=== PATIENT | male | born 1960 ===

== ENCOUNTER 2018-10-24 18:30 | Inpatient (IN) | payer MEDICARE, MEDICAID ==
[~2018-10-24] VITALS: Ht 182.9 cm; Wt 120.7 kg
[~2018-10-24 18:30] MED LIST: AMIT-189 PO; ASPI-1265 PO; ESCI10TA45 PO; GLIP-126 PO; HYDR-4384 PO; LISI-600 PO; LORA10TA2 PO; METF-951 PO; TRAM50TA2 PO; ZOC40T PO; metroNIDAZOLE 500mg/NS 100ml premix IV ONE
--- NOTE | 2018-10-24 18:46 | NUR ---
photos taken and added to the chart for documentation
[2018-10-24] MEDS ORDERED: morphine 4 MG/ML inj SYRINge IV ONE (19:50)
[2018-10-24 20:31] LABS: BASOPHILS % (AUTO) 0.3 % (0-1); EOSINOPHILS % (AUTO) 0 % (0-6); HEMATOCRIT 33.3 % (42.0-52.0); HEMOGLOBIN 11.2 g/dl (14.0-17.9); LYMPHOCYTES # (AUTO) 0.4 X10'3 (1.1-4.8); LYMPHOCYTES % (AUTO) 3.3 % (21-51); MEAN CORPUSCULAR HEMOGLOBIN 29.9 PG (27.0-31.0); MEAN CORPUSCULAR HGB CONC 33.8 g/dL (33.0-36.5); MEAN CORPUSCULAR VOLUME 88.5 FL (78-98); MEAN PLATELET VOLUME 8.8 FL (7.4-10.4); MONOCYTES # (AUTO) 0.9 X10'3 (0-0.9); MONOCYTES % (AUTO) 7.1 % (2-12); NEUTROPHILS # (AUTO) 11.2 X10'3 (1.8-7.7); NEUTROPHILS % (AUTO) 89.3 % (42-75); PLATELET COUNT 148 X10'3 (140-440); RED BLOOD COUNT 3.76 X10'6 (4.70-6.10); RED CELL DISTRIBUTION WIDTH 13.1 % (11.5-14.5); WHITE BLOOD COUNT 12.5 X10'3 (4.5-11.0)
[2018-10-24] MEDS ORDERED: midazolam 2 mg/2 ml injection ONE (20:38)
[2018-10-24] MEDS ORDERED: propofol inj 20 ML IV ONE (20:39)
[2018-10-24] MEDS ORDERED: fentaNYL /PF 50mcg/ml 5ml ampule ONE (20:39)
[2018-10-24 20:40] LABS: ALANINE AMINOTRANSFERASE 15 U/L (12-78); ALBUMIN 2.2 G/DL (3.4-5.0); ALBUMIN/GLOBULIN RATIO 0.6 (1.1-1.5); ALKALINE PHOSPHATASE 66 IU/L (46-116); ANION GAP 11 (8-16); ASPARTATE AMINO TRANSFERASE 8 U/L (10-37); BILIRUBIN,TOTAL 0.5 MG/DL (0.1-1.0); BLOOD UREA NITROGEN 46 MG/DL (7-18); BUN/CREATININE RATIO 16.3 (5.4-32.0); CALCIUM 7.6 MG/DL (8.5-10.1); CHLORIDE 97 MMOL/L (99-107); CREATININE 2.83 MG/DL (0.60-1.10); GLUCOSE 354 MG/DL (70-104); POTASSIUM 4.6 MMOL/L (3.5-5.1); SODIUM 125 MMOL/L (135-145); TOTAL CARBON DIOXIDE 17.3 MMOL/L (24-32); TOTAL PROTEIN 6.2 G/DL (6.4-8.2); eGFR 23 ML/MIN
[2018-10-24] MEDS ORDERED: sevoflurane 250ml liquid IH ONE (20:56)
[2018-10-24] MEDS ORDERED: dextrose 50%-water 50ml dispensing syringe IV PRN ×2 (21:00→23:45)
[2018-10-24 21:33] LABS: TOTAL CELLS COUNTED 100
[2018-10-24 21:34] LABS: PLATELET ESTIMATE NORMAL
[2018-10-24] MEDS ORDERED: ceFAZolin 1000mg inj ONE ×3 (21:40→21:48)
[2018-10-24] MEDS ORDERED: rocuronium 10mg/ml inj IV ONE ×2 (21:40→21:48)
[2018-10-24] MEDS ORDERED: ondansetron/PF 4mg/2ml inj IV PRN ×2 (22:40→23:45)
[2018-10-24] MEDS ORDERED: ringers solution, lacted 1,000 ML IV SCH (22:40)
[2018-10-24] MEDS ORDERED: MIDAZolam 5mg/5ml vial ONE (22:45)
[2018-10-24 23:30] VITALS: BP 109/56
--- NOTE | 2018-10-24 23:30 | NUR ---
Received to room 2014, accompanied by MD Brito and surgical crew. Placed on ventilator, to commanding officer traffic division, arterial line and CVP line pressure monitored. Qureshi cath to gravity drainage. Dressings are dry and intact. See assessment record. All vasoactive drugs are infusing via central line.
[2018-10-24 23:41] LABS: ABG BASE EXCESS -9.1 mmol/L (-2.0-3.0); ABG HCO3 17.1 mmol/L (22.0-26.0); ABG OXYGEN SATURATION 96.2 % (95-98); ABG PCO2 (T) 38.7 mmHg (35.0-48.0); ABG PH (T) 7.264 (7.350-7.450); ABG PO2 (T) 90.9 mmHg (83-108); FCOHb 0.7 % (0.5-1.5); FMetHb 0.1 % (0.3-1.12); FO2Hb 95.4 % (94-100); MINUTE VOLUME 10 L/min; PATIENT TEMPERATURE 37.5; PEEP 5 cm H2O; RESPIRATORY RATE 16 b/min; RESPIRATORY RATE (OBSERVED) 16 b/min; TIDAL VOLUME 500 mL; TOTAL HEMOGLOBIN 11.5 G/dl (14.0-18.0)
[2018-10-24 23:45] VITALS: BP 110/52
[2018-10-24] MEDS ORDERED: acetaminophen 325mg tablet PO PRN ×2 (23:45)
[2018-10-24] MEDS ORDERED: acetaminophen 650mg rectal suppository RC PRN (23:45)
[2018-10-24] MEDS ORDERED: insulin regular, human inj. 100 UNITS in normal saline 100ml IV soln 100 ML IV SCH ×2 (23:45)
[2018-10-24] MEDS: K, MAG and/or Phos replacement - Verify level? MC SCH (23:45)
[2018-10-24] MEDS ORDERED: potassium Cl 20mEq/100mL bag 100 ML IV PRN (23:45)
[2018-10-24] MEDS: midazolam 100mg in NS 100ml 100 ML IV PRN (23:58)
[2018-10-24] MEDS: FENTANYL-0.9 % NACL/PF 100 ML IV PRN (23:59)
[2018-10-25] VITALS (25 sets, daily range): BP systolic 97–128; BP diastolic 50–68
[2018-10-25] MEDS ORDERED: CLINDAMYCIN PHOSPHATE/D5W 50 ML IV SCH
[2018-10-25] MEDS: NORepinephrine 8 MG in NS 250ml IV soln IV SCH ×2 (00:01→15:41)
[2018-10-25] MEDS: insulin regular, human inj. 100 UNITS in normal saline 100ml IV soln 100 ML IV SCH ×6 (00:03→09:27)
[2018-10-25 00:08] LABS: BASOPHILS % (AUTO) 0.1 % (0-1); EOSINOPHILS % (AUTO) 0.1 % (0-6); HEMATOCRIT 31.2 % (42.0-52.0); HEMOGLOBIN 10.4 g/dl (14.0-17.9); LYMPHOCYTES # (AUTO) 0.3 X10'3 (1.1-4.8); LYMPHOCYTES % (AUTO) 2.8 % (21-51); MEAN CORPUSCULAR HEMOGLOBIN 29.8 PG (27.0-31.0); MEAN CORPUSCULAR HGB CONC 33.4 g/dL (33.0-36.5); MEAN CORPUSCULAR VOLUME 89.3 FL (78-98); MEAN PLATELET VOLUME 8.3 FL (7.4-10.4); MONOCYTES # (AUTO) 1.1 X10'3 (0-0.9); MONOCYTES % (AUTO) 9.6 % (2-12); NEUTROPHILS # (AUTO) 9.6 X10'3 (1.8-7.7); NEUTROPHILS % (AUTO) 87.4 % (42-75); PLATELET COUNT 139 X10'3 (140-440); RED BLOOD COUNT 3.49 X10'6 (4.70-6.10); RED CELL DISTRIBUTION WIDTH 13.1 % (11.5-14.5)
[2018-10-25] MEDS: clindamycin-Cleocin 900mg/D5W 50 ML IV SCH ×4 (00:11→23:55)
[2018-10-25 00:12] LABS: ALANINE AMINOTRANSFERASE 15 U/L (12-78); ALBUMIN 2.2 G/DL (3.4-5.0); ALBUMIN/GLOBULIN RATIO 0.6 (1.1-1.5); ALKALINE PHOSPHATASE 66 IU/L (46-116); ANION GAP 8 (8-16); ASPARTATE AMINO TRANSFERASE 7 U/L (10-37); BILIRUBIN,TOTAL 0.3 MG/DL (0.1-1.0); BLOOD UREA NITROGEN 46 MG/DL (7-18); BUN/CREATININE RATIO 19.6 (5.4-32.0); CALCIUM 8.4 MG/DL (8.5-10.1); CHLORIDE 101 MMOL/L (99-107); CREATININE 2.35 MG/DL (0.60-1.10); GLUCOSE 266 MG/DL (70-104); MAGNESIUM 1.5 MG/DL (1.5-2.4); PHOSPHORUS 3.5 MG/DL (2.3-4.5); POTASSIUM 4.6 MMOL/L (3.5-5.1); SODIUM 129 MMOL/L (135-145); TOTAL CARBON DIOXIDE 19.7 MMOL/L (24-32); TOTAL PROTEIN 5.7 G/DL (6.4-8.2); eGFR 29 ML/MIN
[2018-10-25 00:29] LABS: HEMOGLOBIN A1C 11.9 % (4.5-6.2)
[2018-10-25] MEDS: levoFLOXACIN-Levaquin 750MG/D5 150 ML IV SCH (00:54)
[2018-10-25] MEDS: normal saline 1000ml 1,000 ML IV SCH ×3 (01:09→20:30)
[2018-10-25] MEDS: VANCOMYCIN 1,500MG inj. 1,500 MG in normal saline 250ml IV soln 280 ML IV SCH (02:27)
--- NOTE | 2018-10-25 03:41 | NUR ---
Titrating Levophed to keep MAP greater than 65. Titrating sedation and pain medication to patient comfort. Will continue to monitor.
[2018-10-25 03:55] LABS: ABG BASE EXCESS -7.8 mmol/L (-2.0-3.0); ABG HCO3 17.5 mmol/L (22.0-26.0); ABG OXYGEN SATURATION 96.7 % (95-98); ABG PCO2 (T) 35.5 mmHg (35.0-48.0); ABG PH (T) 7.311 (7.350-7.450); ABG PO2 (T) 93.1 mmHg (83-108); FCOHb 0.3 % (0.5-1.5); FMetHb 0.1 % (0.3-1.12); FO2Hb 96.3 % (94-100); MINUTE VOLUME 10 L/min; PATIENT TEMPERATURE 37.4; PEEP 5 cm H2O; RESPIRATORY RATE 16 b/min; RESPIRATORY RATE (OBSERVED) 16 b/min; TIDAL VOLUME 600 mL; TOTAL HEMOGLOBIN 11.6 G/dl (14.0-18.0)
--- NOTE | 2018-10-25 04:24 | NUR ---
Discharge planning consult ordered per protocol related to high risk readmission criteria score Addendum: 10/25/18 at 0426 by Tierra Newman RN Amended: Links added.
[2018-10-25 04:29] LABS: BASOPHILS % (AUTO) 0.3 % (0-1); EOSINOPHILS % (AUTO) 0 % (0-6); HEMATOCRIT 31.7 % (42.0-52.0); HEMOGLOBIN 10.8 g/dl (14.0-17.9); LYMPHOCYTES # (AUTO) 0.4 X10'3 (1.1-4.8); LYMPHOCYTES % (AUTO) 3.6 % (21-51); MEAN CORPUSCULAR HGB CONC 34.1 g/dL (33.0-36.5); MEAN CORPUSCULAR VOLUME 88.1 FL (78-98); MEAN PLATELET VOLUME 8.4 FL (7.4-10.4); MONOCYTES % (AUTO) 8.4 % (2-12); NEUTROPHILS # (AUTO) 10.9 X10'3 (1.8-7.7); NEUTROPHILS % (AUTO) 87.7 % (42-75); PLATELET COUNT 153 X10'3 (140-440); RED BLOOD COUNT 3.59 X10'6 (4.70-6.10); RED CELL DISTRIBUTION WIDTH 13.1 % (11.5-14.5); WHITE BLOOD COUNT 12.5 X10'3 (4.5-11.0)
[2018-10-25 04:40] LABS: ALANINE AMINOTRANSFERASE 14 U/L (12-78); ALBUMIN 2.1 G/DL (3.4-5.0); ALBUMIN/GLOBULIN RATIO 0.5 (1.1-1.5); ALKALINE PHOSPHATASE 66 IU/L (46-116); ANION GAP 10 (8-16); ASPARTATE AMINO TRANSFERASE 8 U/L (10-37); BILIRUBIN,TOTAL 0.3 MG/DL (0.1-1.0); BLOOD UREA NITROGEN 41 MG/DL (7-18); BUN/CREATININE RATIO 20.4 (5.4-32.0); CHLORIDE 101 MMOL/L (99-107); CREATININE 2.01 MG/DL (0.60-1.10); GLUCOSE 239 MG/DL (70-104); MAGNESIUM 1.5 MG/DL (1.5-2.4); PHOSPHORUS 2.7 MG/DL (2.3-4.5); POTASSIUM 4.2 MMOL/L (3.5-5.1); SODIUM 130 MMOL/L (135-145); TOTAL CARBON DIOXIDE 18.9 MMOL/L (24-32); eGFR 34 ML/MIN
--- NOTE | 2018-10-25 04:56 | NUR ---
AM Labs and ABG reviewed, Nagi Torrez updated on patient's current status. No new orders at this time.
--- NOTE | 2018-10-25 06:22 | NUR ---
Problems reprioritized. Patient report given, questions answered & plan of care reviewed with Nadine DALTON.
--- NOTE | 2018-10-25 06:38 | NUR ---
Patient in room CICU 2013. I have received report from SHA Mayorga and had the opportunity to ask questions and assume patient care.
[2018-10-25] MEDS: K, MAG and/or Phos replacement - Verify level? MC SCH (07:28)
[2018-10-25] MEDS: ESOMEPRAZOLE 40 MG VIAL IV SCH (07:39)
[2018-10-25] MEDS ORDERED: pantoprazole 40 MG vial IV SCH (08:00)
[2018-10-25] MEDS: insulin Lispro (HumaLOG) vial - multi-dose SQ SCH ×3 (09:00→18:00)
--- NOTE | 2018-10-25 11:53 | NUR ---
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 Pt now s/p I&D and will likely return to the OR tomorrow for further surgery possibly to include a diverting colostomy per H&P. Pt currently intubated. denies starting TF at this time pending surgery tomorrow. Pt with increased protein needs r/t intubation and wounds. TF recommendations below for if prolonged intubation and pt to receive tube feeding. Pt may benefit from Relistor post-op r/t A1c 11.9 with possibility of gastroparesis. Pt will need DM ed prior to d/c. Will continue to follow. Recommendations: 1) If to receive tube feed, recommend Vital High Protein with goal rate of 75 mL/hr 2) If above, prealbumin q M/; daily weights 3) If above, careful hydration with low serum Na 4) Diet advancement to CHO controlled/low-residue/HH s/p extubation 5) DM and protein ed prior to d/c 6) Colostomy education prior to d/c IF colostomy Addendum: 10/25/18 at [address] Amended: Links added.
[2018-10-25] MEDS: metroNIDAZOLE-Flagyl 500mg/NS 100ml IVPB IV SCH ×3 (12:23→23:55)
[2018-10-25] MEDS: hydrocortisone sod succ/PF 100mg/2ml inj. IV SCH ×2 (14:23→20:02)
[2018-10-25] MEDS: FENTANYL-0.9 % NACL/PF 100 ML IV PRN (15:39)
--- NOTE | 2018-10-25 16:11 | NUR ---
RECOMMEND: 1. Daily bathing with no rinse skin cleanser. 2. Cream/Lotion to be applied to skin after bathing. 3. Alicia care Q shift and prn soiling followed by with Barrier Cream. 4. Turn patient Q 1-2 hrs and reposition with pillows. 5. Float heels to offload pressure. Addendum: 10/25/18 at 1613 by Bel Munoz RN Amended: Links added.
--- NOTE | 2018-10-25 18:25 | NUR ---
Problems reprioritized. Patient report given, questions answered & plan of care reviewed with SHA Covarrubias.
[2018-10-26] VITALS (24 sets, daily range): BP systolic 98–139; BP diastolic 55–73
[2018-10-26] MEDS: VANCOMYCIN 1,500MG inj. 1,500 MG in normal saline 250ml IV soln 280 ML IV SCH (01:03)
[2018-10-26] MEDS: hydrocortisone sod succ/PF 100mg/2ml inj. IV SCH ×4 (02:07→20:50)
[2018-10-26] MEDS: mineral oil/petrolatum ophthal oint EACHEYE SCH ×4 (02:07→20:51)
[2018-10-26 04:14] LABS: BASOPHILS % (AUTO) 0.1 % (0-1); EOSINOPHILS % (AUTO) 0.1 % (0-6); HEMATOCRIT 29.8 % (42.0-52.0); HEMOGLOBIN 10.3 g/dl (14.0-17.9); LYMPHOCYTES # (AUTO) 0.4 X10'3 (1.1-4.8); LYMPHOCYTES % (AUTO) 4.4 % (21-51); MEAN CORPUSCULAR HEMOGLOBIN 30.3 PG (27.0-31.0); MEAN CORPUSCULAR HGB CONC 34.5 g/dL (33.0-36.5); MEAN CORPUSCULAR VOLUME 87.9 FL (78-98); MONOCYTES # (AUTO) 0.8 X10'3 (0-0.9); MONOCYTES % (AUTO) 7.6 % (2-12); NEUTROPHILS # (AUTO) 8.9 X10'3 (1.8-7.7); NEUTROPHILS % (AUTO) 87.8 % (42-75); PLATELET COUNT 177 X10'3 (140-440); RED BLOOD COUNT 3.39 X10'6 (4.70-6.10); RED CELL DISTRIBUTION WIDTH 13.4 % (11.5-14.5); WHITE BLOOD COUNT 10.2 X10'3 (4.5-11.0)
[2018-10-26 04:18] LABS: ALANINE AMINOTRANSFERASE 14 U/L (12-78); ALBUMIN 1.9 G/DL (3.4-5.0); ALBUMIN/GLOBULIN RATIO 0.5 (1.1-1.5); ALKALINE PHOSPHATASE 64 IU/L (46-116); ANION GAP 9 (8-16); ASPARTATE AMINO TRANSFERASE 9 U/L (10-37); BILIRUBIN,TOTAL 0.2 MG/DL (0.1-1.0); BLOOD UREA NITROGEN 32 MG/DL (7-18); BUN/CREATININE RATIO 25.2 (5.4-32.0); CALCIUM 8.5 MG/DL (8.5-10.1); CHLORIDE 109 MMOL/L (99-107); CREATININE 1.27 MG/DL (0.60-1.10); GLUCOSE 135 MG/DL (70-104); PHOSPHORUS 2.5 MG/DL (2.3-4.5); SODIUM 137 MMOL/L (135-145); TOTAL CARBON DIOXIDE 19.3 MMOL/L (24-32); eGFR 58 ML/MIN
[2018-10-26 04:36] LABS: ABG BASE EXCESS -6.5 mmol/L (-2.0-3.0); ABG HCO3 17.8 mmol/L (22.0-26.0); ABG OXYGEN SATURATION 97.5 % (95-98); ABG PCO2 (T) 30.8 mmHg (35.0-48.0); ABG PH (T) 7.377 (7.350-7.450); ABG PO2 (T) 99.6 mmHg (83-108); FCOHb 0.3 % (0.5-1.5); FMetHb 0.1 % (0.3-1.12); FO2Hb 97.1 % (94-100); MINUTE VOLUME 10 L/min; PATIENT TEMPERATURE 36.7; PEEP 5 cm H2O; RESPIRATORY RATE 16 b/min; RESPIRATORY RATE (OBSERVED) 16 b/min; TIDAL VOLUME 600 mL
[2018-10-26] MEDS: normal saline 1000ml 1,000 ML IV SCH ×2 (04:57→16:50)
--- NOTE | 2018-10-26 06:35 | NUR ---
Problems reprioritized. Patient report given, questions answered & plan of care reviewed with YOLIE DALTON.
--- NOTE | 2018-10-26 06:58 | NUR ---
Patient in room CICU 2013. I have received report from SHA Covarrubias and had the opportunity to ask questions and assume patient care.
[2018-10-26] MEDS: K, MAG and/or Phos replacement - Verify level? MC SCH (08:00)
[2018-10-26] MEDS: levoFLOXACIN-Levaquin 750MG/D5 150 ML IV SCH (08:35)
[2018-10-26] MEDS: metroNIDAZOLE-Flagyl 500mg/NS 100ml IVPB IV SCH ×2 (08:35→16:05)
[2018-10-26] MEDS: clindamycin-Cleocin 900mg/D5W 50 ML IV SCH ×2 (08:35→16:05)
[2018-10-26] MEDS: ESOMEPRAZOLE 40 MG VIAL IV SCH (08:36)
[2018-10-26] MEDS: FENTANYL-0.9 % NACL/PF 100 ML IV PRN (08:38)
[2018-10-26] MEDS: midazolam 100mg in NS 100ml 100 ML IV PRN (08:39)
[2018-10-26] MEDS: insulin Lispro (HumaLOG) vial - multi-dose SQ SCH ×3 (09:00→18:00)
[2018-10-26] MEDS: insulin regular, human inj. 100 UNITS in normal saline 100ml IV soln 100 ML IV SCH ×4 (09:00→12:37)
--- NOTE | 2018-10-26 10:02 | NUR ---
Wound consult: Pt remains NPO and intubated at this time. Will need protein education prior to discharge s/p extubation once pt alert and oriented. Addendum: 10/26/18 at [address] Amended: Links added.
--- NOTE | 2018-10-26 18:26 | NUR ---
Problems reprioritized. Patient report given, questions answered & plan of care reviewed with Michelle. DALTON.
[2018-10-26] MEDS: NORepinephrine 8 MG in NS 250ml IV soln IV SCH (20:50)
--- NOTE | 2018-10-26 23:39 | NUR ---
Qureshi catheter not draining even after flush. notified, orders received to exchange with 18F catheter. Exchange completed without incident, catheter output: 100mL light salas urine. Will continue to monitor closely.
[2018-10-27] VITALS (29 sets, daily range): BP systolic 97–159; BP diastolic 54–88
[2018-10-27] MEDS: clindamycin-Cleocin 900mg/D5W 50 ML IV SCH ×4 (01:12→23:45)
[2018-10-27] MEDS: midazolam 100mg in NS 100ml 100 ML IV PRN (01:16)
[2018-10-27] MEDS: metroNIDAZOLE-Flagyl 500mg/NS 100ml IVPB IV SCH ×3 (01:48→16:09)
[2018-10-27] MEDS: hydrocortisone sod succ/PF 100mg/2ml inj. IV SCH ×4 (02:15→19:45)
[2018-10-27] MEDS: normal saline 1000ml 1,000 ML IV SCH ×3 (02:16→22:30)
[2018-10-27] MEDS: mineral oil/petrolatum ophthal oint EACHEYE SCH ×4 (02:16→19:45)
[2018-10-27] MEDS: VANCOMYCIN 1,500MG inj. 1,500 MG in normal saline 250ml IV soln 280 ML IV SCH (03:12)
[2018-10-27 04:05] LABS: ABG BASE EXCESS -5.9 mmol/L (-2.0-3.0); ABG OXYGEN SATURATION 96.1 % (95-98); ABG PCO2 (T) 30.4 mmHg (35.0-48.0); ABG PH (T) 7.391 (7.350-7.450); ABG PO2 (T) 82.5 mmHg (83-108); FCOHb 0.3 % (0.5-1.5); FMetHb 0.3 % (0.3-1.12); FO2Hb 95.5 % (94-100); MINUTE VOLUME 11 L/min; PATIENT TEMPERATURE 36.9; PEEP 5 cm H2O; RESPIRATORY RATE 16 b/min; RESPIRATORY RATE (OBSERVED) 16 b/min; TIDAL VOLUME 600 mL; TOTAL HEMOGLOBIN 10.9 G/dl (14.0-18.0)
[2018-10-27 04:28] LABS: BASOPHILS % (AUTO) 0.3 % (0-1); EOSINOPHILS % (AUTO) 0 % (0-6); HEMOGLOBIN 9.9 g/dl (14.0-17.9); LYMPHOCYTES # (AUTO) 0.7 X10'3 (1.1-4.8); LYMPHOCYTES % (AUTO) 8.1 % (21-51); MEAN CORPUSCULAR HEMOGLOBIN 30.3 PG (27.0-31.0); MEAN CORPUSCULAR HGB CONC 34.3 g/dL (33.0-36.5); MEAN CORPUSCULAR VOLUME 88.2 FL (78-98); MEAN PLATELET VOLUME 8.4 FL (7.4-10.4); MONOCYTES # (AUTO) 0.6 X10'3 (0-0.9); MONOCYTES % (AUTO) 7.6 % (2-12); NEUTROPHILS # (AUTO) 6.9 X10'3 (1.8-7.7); PLATELET COUNT 183 X10'3 (140-440); RED BLOOD COUNT 3.29 X10'6 (4.70-6.10); RED CELL DISTRIBUTION WIDTH 13.6 % (11.5-14.5); WHITE BLOOD COUNT 8.2 X10'3 (4.5-11.0)
[2018-10-27 05:05] LABS: ALANINE AMINOTRANSFERASE 11 U/L (12-78); ALBUMIN 1.7 G/DL (3.4-5.0); ALBUMIN/GLOBULIN RATIO 0.5 (1.1-1.5); ALKALINE PHOSPHATASE 58 IU/L (46-116); ANION GAP 10 (8-16); ASPARTATE AMINO TRANSFERASE 13 U/L (10-37); BILIRUBIN,TOTAL 0.2 MG/DL (0.1-1.0); BLOOD UREA NITROGEN 32 MG/DL (7-18); BUN/CREATININE RATIO 27.1 (5.4-32.0); CALCIUM 8.5 MG/DL (8.5-10.1); CHLORIDE 111 MMOL/L (99-107); CREATININE 1.18 MG/DL (0.60-1.10); GLUCOSE 180 MG/DL (70-104); POTASSIUM 3.7 MMOL/L (3.5-5.1); SODIUM 141 MMOL/L (135-145); TOTAL CARBON DIOXIDE 19.7 MMOL/L (24-32); TOTAL PROTEIN 5.4 G/DL (6.4-8.2); eGFR 63 ML/MIN
--- NOTE | 2018-10-27 06:23 | NUR ---
Problems reprioritized. Patient report given, questions answered & plan of care reviewed with Marci DALTON.
--- NOTE | 2018-10-27 06:30 | NUR ---
Patient in room CICU 2013. I have received report from shift nurse manager nurse and had the opportunity to ask questions and assume patient care.
[2018-10-27] MEDS: K, MAG and/or Phos replacement - Verify level? MC SCH (08:00)
[2018-10-27] MEDS: ESOMEPRAZOLE 40 MG VIAL IV SCH (08:00)
--- NOTE | 2018-10-27 08:00 | NUR ---
to OR via bed, anesthesia in attendance, monitored, and 2 RN transporting. consent obtained via telephone from son.
[2018-10-27] MEDS: insulin Lispro (HumaLOG) vial - multi-dose SQ SCH ×3 (09:00→18:00)
[2018-10-27] MEDS ORDERED: rocuronium 10mg/ml inj IV ONE ×2 (09:02)
--- NOTE | 2018-10-27 10:00 | NUR ---
returned from OR via bed, anesthesia in attendance, monitored, report received and stable
[2018-10-27] MEDS: FENTANYL-0.9 % NACL/PF 100 ML IV PRN (10:42)
--- NOTE | 2018-10-27 18:39 | NUR ---
Patient in room CICU 2013. I have received report from SHA Covarrubias and had the opportunity to ask questions and assume patient care. Patient is awake and alert, intubated and on sedation with Versed and pain control with Fentanyl. Patient is also on a insulin drip. Patient is attempting to speak with the tube in place, unable to understand. Patient given picture chart to attempt to communicate, without success. Explained to patient that the tube needed to stay in for the night, patient nodded his head that he understood.
[2018-10-27] MEDS: insulin regular, human inj. 100 UNITS in normal saline 100ml IV soln 100 ML IV SCH ×2 (21:00)
[2018-10-28] VITALS (23 sets, daily range): BP systolic 88–149; BP diastolic 51–94
[2018-10-28] MEDS ORDERED: VANCOMYCIN LEVEL IV ONE (00:30)
[2018-10-28] MEDS: metroNIDAZOLE-Flagyl 500mg/NS 100ml IVPB IV SCH ×3 (00:49→15:48)
[2018-10-28] MEDS: midazolam 100mg in NS 100ml 100 ML IV PRN (01:09)
[2018-10-28] MEDS: FENTANYL-0.9 % NACL/PF 100 ML IV PRN ×2 (01:12→22:21)
[2018-10-28] MEDS: hydrocortisone sod succ/PF 100mg/2ml inj. IV SCH ×4 (02:17→21:00)
[2018-10-28] MEDS: VANCOMYCIN 1,500MG inj. 1,500 MG in normal saline 250ml IV soln 280 ML IV SCH (02:17)
[2018-10-28] MEDS: mineral oil/petrolatum ophthal oint EACHEYE SCH ×4 (02:17→21:00)
[2018-10-28 03:55] LABS: BASOPHILS % (AUTO) 0.6 % (0-1); EOSINOPHILS % (AUTO) 0 % (0-6); HEMATOCRIT 31.4 % (42.0-52.0); HEMOGLOBIN 10.6 g/dl (14.0-17.9); MEAN CORPUSCULAR HEMOGLOBIN 29.8 PG (27.0-31.0); MEAN CORPUSCULAR HGB CONC 33.8 g/dL (33.0-36.5); MEAN PLATELET VOLUME 8.1 FL (7.4-10.4); MONOCYTES # (AUTO) 0.9 X10'3 (0-0.9); MONOCYTES % (AUTO) 10.3 % (2-12); NEUTROPHILS # (AUTO) 6.8 X10'3 (1.8-7.7); NEUTROPHILS % (AUTO) 78.1 % (42-75); PLATELET COUNT 211 X10'3 (140-440); RED BLOOD COUNT 3.57 X10'6 (4.70-6.10); RED CELL DISTRIBUTION WIDTH 13.7 % (11.5-14.5); WHITE BLOOD COUNT 8.7 X10'3 (4.5-11.0)
[2018-10-28 04:04] LABS: ALANINE AMINOTRANSFERASE 13 U/L (12-78); ALBUMIN 1.8 G/DL (3.4-5.0); ALBUMIN/GLOBULIN RATIO 0.5 (1.1-1.5); ALKALINE PHOSPHATASE 55 IU/L (46-116); ANION GAP 9 (8-16); ASPARTATE AMINO TRANSFERASE 11 U/L (10-37); BILIRUBIN,TOTAL 0.3 MG/DL (0.1-1.0); BLOOD UREA NITROGEN 30 MG/DL (7-18); BUN/CREATININE RATIO 25.2 (5.4-32.0); CALCIUM 8.3 MG/DL (8.5-10.1); CHLORIDE 115 MMOL/L (99-107); CREATININE 1.19 MG/DL (0.60-1.10); GLUCOSE 151 MG/DL (70-104); MAGNESIUM 1.8 MG/DL (1.5-2.4); POTASSIUM 3.3 MMOL/L (3.5-5.1); SODIUM 145 MMOL/L (135-145); TOTAL CARBON DIOXIDE 21.1 MMOL/L (24-32); TOTAL PROTEIN 5.3 G/DL (6.4-8.2); eGFR 63 ML/MIN
[2018-10-28 05:01] LABS: ABG HCO3 19.6 mmol/L (22.0-26.0); ABG OXYGEN SATURATION 95.1 % (95-98); ABG PCO2 (T) 30.9 mmHg (35.0-48.0); ABG PH (T) 7.419 (7.350-7.450); ABG PO2 (T) 79.7 mmHg (83-108); FCOHb 0.2 % (0.5-1.5); FMetHb 0.2 % (0.3-1.12); FO2Hb 94.7 % (94-100); MINUTE VOLUME 10 L/min; PATIENT TEMPERATURE 36.7; PEEP 5 cm H2O; RESPIRATORY RATE 16 b/min; RESPIRATORY RATE (OBSERVED) 16 b/min; TIDAL VOLUME 600 mL; TOTAL HEMOGLOBIN 11.5 G/dl (14.0-18.0)
[2018-10-28] MEDS: insulin regular, human inj. 100 UNITS in normal saline 100ml IV soln 100 ML IV SCH ×4 (05:18→23:55)
[2018-10-28] MEDS: normal saline 1000ml 1,000 ML IV SCH ×2 (05:18→18:30)
--- NOTE | 2018-10-28 06:20 | NUR ---
Problems reprioritized. Patient report given, questions answered & plan of care reviewed with SHA Burnett.
[2018-10-28] MEDS: K, MAG and/or Phos replacement - Verify level? MC SCH (08:00)
[2018-10-28] MEDS: clindamycin-Cleocin 900mg/D5W 50 ML IV SCH ×2 (08:33→15:47)
[2018-10-28] MEDS: levoFLOXACIN-Levaquin 750MG/D5 150 ML IV SCH (08:33)
[2018-10-28] MEDS: ESOMEPRAZOLE 40 MG VIAL IV SCH (08:34)
[2018-10-28] MEDS: potassium Cl 20mEq/100mL bag 100 ML IV PRN ×2 (08:38→16:51)
[2018-10-28] MEDS: insulin Lispro (HumaLOG) vial - multi-dose SQ SCH ×2 (09:00→18:00)
[2018-10-28] MEDS ORDERED: VANCOMYCIN 1,500MG inj. 1,500 MG in normal saline 250ml IV soln 280 ML IV SCH (09:00)
[2018-10-28] MEDS: CefTRIAXone 2gm/D5W 50ml 50 ML IV SCH (14:23)
--- NOTE | 2018-10-28 18:30 | NUR ---
Patient in room CICU 2013. I have received report from SHA Burnett and had the opportunity to ask questions and assume patient care.
[2018-10-28] MEDS: NORepinephrine 8 MG in NS 250ml IV soln IV SCH (20:50)
[2018-10-29] VITALS (22 sets, daily range): BP systolic 96–169; BP diastolic 57–85
[2018-10-29] MEDS: midazolam 100mg in NS 100ml 100 ML IV PRN
[2018-10-29] MEDS: clindamycin-Cleocin 900mg/D5W 50 ML IV SCH ×4 (00:36→23:55)
[2018-10-29] MEDS: metroNIDAZOLE-Flagyl 500mg/NS 100ml IVPB IV SCH ×4 (00:43→23:54)
[2018-10-29] MEDS: hydrocortisone sod succ/PF 100mg/2ml inj. IV SCH ×3 (02:48→20:14)
[2018-10-29] MEDS: mineral oil/petrolatum ophthal oint EACHEYE SCH ×4 (02:48→20:14)
[2018-10-29 03:40] LABS: ABG BASE EXCESS -2.5 mmol/L (-2.0-3.0); ABG HCO3 21.1 mmol/L (22.0-26.0); ABG OXYGEN SATURATION 97.5 % (95-98); ABG PCO2 (T) 32.1 mmHg (35.0-48.0); ABG PH (T) 7.434 (7.350-7.450); ABG PO2 (T) 103.1 mmHg (83-108); ALLEN'S TEST Positive; FCOHb 0.3 % (0.5-1.5); FMetHb 0.1 % (0.3-1.12); FO2Hb 97.1 % (94-100); MINUTE VOLUME 10 L/min; PATIENT TEMPERATURE 36.6; PEEP 5 cm H2O; RESPIRATORY RATE 16 b/min; RESPIRATORY RATE (OBSERVED) 16 b/min; TOTAL HEMOGLOBIN 11.7 G/dl (14.0-18.0)
[2018-10-29] MEDS: normal saline 1000ml 1,000 ML IV SCH ×3 (04:30→23:54)
[2018-10-29] MEDS: FENTANYL-0.9 % NACL/PF 100 ML IV PRN ×2 (04:31→12:12)
[2018-10-29 06:01] LABS: BASOPHILS % (AUTO) 0.3 % (0-1); EOSINOPHILS % (AUTO) 0.1 % (0-6); HEMATOCRIT 33.7 % (42.0-52.0); HEMOGLOBIN 11.3 g/dl (14.0-17.9); LYMPHOCYTES # (AUTO) 0.8 X10'3 (1.1-4.8); LYMPHOCYTES % (AUTO) 9.9 % (21-51); MEAN CORPUSCULAR HEMOGLOBIN 29.5 PG (27.0-31.0); MEAN CORPUSCULAR HGB CONC 33.4 g/dL (33.0-36.5); MEAN CORPUSCULAR VOLUME 88.3 FL (78-98); MEAN PLATELET VOLUME 7.9 FL (7.4-10.4); MONOCYTES # (AUTO) 0.7 X10'3 (0-0.9); MONOCYTES % (AUTO) 8.4 % (2-12); NEUTROPHILS # (AUTO) 6.6 X10'3 (1.8-7.7); NEUTROPHILS % (AUTO) 81.3 % (42-75); PLATELET COUNT 254 X10'3 (140-440); RED BLOOD COUNT 3.82 X10'6 (4.70-6.10); RED CELL DISTRIBUTION WIDTH 13.9 % (11.5-14.5); WHITE BLOOD COUNT 8.1 X10'3 (4.5-11.0)
[2018-10-29 06:22] LABS: ALANINE AMINOTRANSFERASE 13 U/L (12-78); ALBUMIN 1.9 G/DL (3.4-5.0); ALBUMIN/GLOBULIN RATIO 0.5 (1.1-1.5); ALKALINE PHOSPHATASE 54 IU/L (46-116); ANION GAP 8 (8-16); ASPARTATE AMINO TRANSFERASE 9 U/L (10-37); BILIRUBIN,TOTAL 0.2 MG/DL (0.1-1.0); BLOOD UREA NITROGEN 29 MG/DL (7-18); CALCIUM 8.4 MG/DL (8.5-10.1); CHLORIDE 117 MMOL/L (99-107); CREATININE 1.21 MG/DL (0.60-1.10); GLUCOSE 111 MG/DL (70-104); MAGNESIUM 1.8 MG/DL (1.5-2.4); POTASSIUM 3.6 MMOL/L (3.5-5.1); SODIUM 148 MMOL/L (135-145); TOTAL CARBON DIOXIDE 22.6 MMOL/L (24-32); TOTAL PROTEIN 5.7 G/DL (6.4-8.2); eGFR 61 ML/MIN
--- NOTE | 2018-10-29 06:30 | NUR ---
Problems reprioritized. Patient report given, questions answered & plan of care reviewed with SHA Mccoy.
--- NOTE | 2018-10-29 06:41 | NUR ---
Patient in room CICU 2013. I have received report from SHA Arguello and had the opportunity to ask questions and assume patient care.
[2018-10-29] MEDS: ESOMEPRAZOLE 40 MG VIAL IV SCH (07:16)
[2018-10-29] MEDS: CefTRIAXone 2gm/D5W 50ml 50 ML IV SCH (07:16)
[2018-10-29] MEDS: K, MAG and/or Phos replacement - Verify level? MC SCH (08:00)
[2018-10-29] MEDS: insulin Lispro (HumaLOG) vial - multi-dose SQ SCH ×3 (09:00→18:00)
--- NOTE | 2018-10-29 13:46 | NUR ---
Pending surgery today for diverting colostomy, hopeful extubation and diet advancement afterwards. Wound consult: Pt remains NPO and intubated at this time. Will need protein education prior to discharge s/p extubation once pt alert and oriented. 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 Pt now s/p I&D and will likely return to the OR tomorrow for further surgery possibly to include a diverting colostomy per H&P. Pt currently intubated. denies starting TF at this time pending surgery tomorrow. Pt with increased protein needs r/t intubation and wounds. TF recommendations below for if prolonged intubation and pt to receive tube feeding. Pt may benefit from Relistor post-op r/t A1c 11.9 with possibility of gastroparesis. Pt will need DM ed prior to d/c. Will continue to follow. Recommendations: 1) If to receive tube feed, recommend Vital High Protein with goal rate of 75 mL/hr 2) If above, prealbumin q /; daily weights 3) If above, careful hydration with low serum Na 4) Diet advancement to CHO controlled/low-residue/HH s/p extubation 5) DM and protein ed prior to d/c 6) Colostomy education prior to d/c Addendum: 10/29/18 at [address] Amended: Links added.
[2018-10-29] MEDS ORDERED: ringers solution, lacted 1,000 ML IV SCH (14:17)
[2018-10-29] MEDS ORDERED: ondansetron/PF 4mg/2ml inj IV PRN (14:20)
[2018-10-29] MEDS ORDERED: morphine 4 MG/ML inj SYRINge IV PRN ×2 (14:20)
[2018-10-29] MEDS ORDERED: fentaNYL/PF 50MCG/1 ML 2ML syringe IV PRN ×2 (14:20)
[2018-10-29] MEDS ORDERED: labetalol 20mg/4ml (5mg/ml) syringe IV PRN (14:20)
[2018-10-29] MEDS ORDERED: hydrALAZINE 20mg/ml inj. IV PRN (14:20)
[2018-10-29] MEDS ORDERED: BUPIVAcaine/PF 2.5 mg/ml (0.25%) 30ml vial ONE (14:45)
[2018-10-29] MEDS ORDERED: LIDOcaine 1% 30ml preserv. free vial ONE (14:45)
[2018-10-29] MEDS ORDERED: epiNEPHrine 1 mg/ml inj ONE (14:45)
--- NOTE | 2018-10-29 15:00 | NUR ---
pt taken to OR
[2018-10-29] MEDS ORDERED: sevoflurane 250ml liquid IH ONE (15:03)
[2018-10-29] MEDS ORDERED: ePHEDrine 50MG/ML INJ. ONE (15:23)
[2018-10-29] MEDS ORDERED: labetalol 20mg/4ml (5mg/ml) syringe IV ONE (15:37)
[2018-10-29] MEDS ORDERED: ondansetron/PF 4mg/2ml inj ONE (16:22)
--- NOTE | 2018-10-29 16:43 | NUR ---
Pt returned from OR, lines, organized, zeroed and transduced. Pt placed back on ICU monitor. Responds to questions appropriately and follows all commands. Pt soiled upon arrival, cleaned and new linens placed underneath pt. Will continue to monitor
--- NOTE | 2018-10-29 18:21 | NUR ---
Problems reprioritized. Patient report given, questions answered & plan of care reviewed with SHA Covarrubias.
[2018-10-29] MEDS ORDERED: VANCOMYCIN LEVEL IV ONE (20:30)
[2018-10-30] VITALS (24 sets, daily range): BP systolic 123–169; BP diastolic 59–87
[2018-10-30] MEDS: mineral oil/petrolatum ophthal oint EACHEYE SCH ×3 (02:25→14:00)
[2018-10-30 03:37] LABS: ALANINE AMINOTRANSFERASE 14 U/L (12-78); ALBUMIN 1.8 G/DL (3.4-5.0); ALBUMIN/GLOBULIN RATIO 0.5 (1.1-1.5); ALKALINE PHOSPHATASE 51 IU/L (46-116); ANION GAP 10 (8-16); ASPARTATE AMINO TRANSFERASE 14 U/L (10-37); BILIRUBIN,TOTAL 0.2 MG/DL (0.1-1.0); BLOOD UREA NITROGEN 26 MG/DL (7-18); BUN/CREATININE RATIO 21.3 (5.4-32.0); CALCIUM 7.8 MG/DL (8.5-10.1); CHLORIDE 117 MMOL/L (99-107); CREATININE 1.22 MG/DL (0.60-1.10); GLUCOSE 182 MG/DL (70-104); MAGNESIUM 1.6 MG/DL (1.5-2.4); PHOSPHORUS 3.9 MG/DL (2.3-4.5); POTASSIUM 3.5 MMOL/L (3.5-5.1); SODIUM 147 MMOL/L (135-145); TOTAL CARBON DIOXIDE 20.5 MMOL/L (24-32); TOTAL PROTEIN 5.2 G/DL (6.4-8.2); eGFR 61 ML/MIN
[2018-10-30] MEDS: FENTANYL-0.9 % NACL/PF 100 ML IV PRN (03:41)
[2018-10-30 03:42] LABS: BASOPHILS % (AUTO) 0.2 % (0-1); EOSINOPHILS % (AUTO) 0.3 % (0-6); HEMATOCRIT 31.4 % (42.0-52.0); HEMOGLOBIN 10.6 g/dl (14.0-17.9); LYMPHOCYTES # (AUTO) 1.2 X10'3 (1.1-4.8); LYMPHOCYTES % (AUTO) 12.2 % (21-51); MEAN CORPUSCULAR HEMOGLOBIN 29.8 PG (27.0-31.0); MEAN CORPUSCULAR HGB CONC 33.8 g/dL (33.0-36.5); MEAN CORPUSCULAR VOLUME 88.2 FL (78-98); MEAN PLATELET VOLUME 8.2 FL (7.4-10.4); MONOCYTES # (AUTO) 0.5 X10'3 (0-0.9); MONOCYTES % (AUTO) 5.6 % (2-12); NEUTROPHILS # (AUTO) 7.8 X10'3 (1.8-7.7); NEUTROPHILS % (AUTO) 81.7 % (42-75); PLATELET COUNT 236 X10'3 (140-440); RED BLOOD COUNT 3.56 X10'6 (4.70-6.10); RED CELL DISTRIBUTION WIDTH 13.5 % (11.5-14.5); WHITE BLOOD COUNT 9.6 X10'3 (4.5-11.0)
[2018-10-30 03:46] LABS: ABG BASE EXCESS -4.1 mmol/L (-2.0-3.0); ABG HCO3 19.2 mmol/L (22.0-26.0); ABG PCO2 (T) 28.5 mmHg (35.0-48.0); ABG PH (T) 7.443 (7.350-7.450); ABG PO2 (T) 81.1 mmHg (83-108); FCOHb 0.3 % (0.5-1.5); FMetHb 0.1 % (0.3-1.12); FO2Hb 95.6 % (94-100); MINUTE VOLUME 1 L/min; PATIENT TEMPERATURE 36.2; PEEP 5 cm H2O; RESPIRATORY RATE 16 b/min; RESPIRATORY RATE (OBSERVED) 18 b/min; TIDAL VOLUME 650 mL; TOTAL HEMOGLOBIN 11.5 G/dl (14.0-18.0)
[2018-10-30] MEDS: midazolam 100mg in NS 100ml 100 ML IV PRN (04:58)
--- NOTE | 2018-10-30 06:30 | NUR ---
Patient in room CICU 2013. I have received report from Dev Harrell and had the opportunity to ask questions and assume patient care.
[2018-10-30] MEDS: K, MAG and/or Phos replacement - Verify level? MC SCH (08:00)
[2018-10-30] MEDS ORDERED: furosemide 40mg/4ml inj IV ONE (08:55)
[2018-10-30] MEDS: insulin Lispro (HumaLOG) vial - multi-dose SQ SCH ×3 (09:00→18:00)
[2018-10-30] MEDS: CefTRIAXone 2gm/D5W 50ml 50 ML IV SCH (09:14)
[2018-10-30] MEDS: clindamycin-Cleocin 900mg/D5W 50 ML IV SCH ×2 (09:15→16:16)
[2018-10-30] MEDS: hydrocortisone sod succ/PF 100mg/2ml inj. IV SCH ×2 (09:15→20:16)
[2018-10-30] MEDS: ESOMEPRAZOLE 40 MG VIAL IV SCH (09:15)
[2018-10-30] MEDS: metroNIDAZOLE-Flagyl 500mg/NS 100ml IVPB IV SCH ×2 (09:15→16:16)
--- NOTE | 2018-10-30 09:55 | NUR ---
extubated withoutproblems to 2 l min nasal cannula
[2018-10-30] MEDS: normal saline 1000ml 1,000 ML IV SCH ×2 (11:00→20:30)
--- NOTE | 2018-10-30 11:00 | NUR ---
drsg to scrotuma nd perinuem changed, packing removed, irrigated with sterile NS, repacked with NS kerlix sterile. abd applied over top and mesh panties, pt tolerated well.
[2018-10-30] MEDS: morphine 2 MG/ML inj. syringe IV PRN ×2 (11:05→17:17)
--- NOTE | 2018-10-30 12:00 | NUR ---
Pt extubated today pending diet advancement to clear liquids per surgeon approval; pt did not have colostomy placed and having regular BM's. MD OK to start multivitamin/mineral since 6 days no nutrition since admit and extensive wound healing needs. Pt hx uncontrolled DM w/ A1C 11.9 and as such cannot receive ensure clears w/ meals since 53g sugar per container. Unable to add Chay while on clears since makes liquids no longer transparent. Once pt placed on full liquids will be able to receive Chay BID as well as ensure high protein for additional needs. LBM 10/29. Will monitor for diet advancement and PO diet tolerance. Given above criteria as well as heavily catabolic status pt qualifies for non-severe malnutrition at this time; MD notified. Pt will need high protein, malnutrition, and DM ed once clinically stable prior to d/c. Recommendations: 1) advance diet per MD to carb controlled/heart healthy 2) ONS and Chay BID once advanced from clear liquids 3) DM, malnutrition, and protein ed prior to d/c 4) MVI for wound healing Addendum: 10/30/18 at [address] Amended: Links added.
--- NOTE | 2018-10-30 13:25 | NUR ---
report to relief nurse given
--- NOTE | 2018-10-30 13:30 | NUR ---
Patient in room CICU 2013. I have received report from SHARAN DALTON and had the opportunity to ask questions and assume patient care.
[2018-10-30] MEDS: multivitamin oral liquid (Certavite) 5ml cup PO SCH (16:16)
--- NOTE | 2018-10-30 18:22 | NUR ---
Problems reprioritized. Patient report given, questions answered & plan of care reviewed with SHARAN DALTON.
[2018-10-30] MEDS: lactobacillus rhamnosus 10,000 MMU CELLS/CAPSULE PO SCH (20:16)
[2018-10-30] MEDS: NORepinephrine 8 MG in NS 250ml IV soln IV SCH (20:50)
[2018-10-30] MEDS: morphine 4 MG/ML inj SYRINge IV PRN (21:20)
[2018-10-31] VITALS (20 sets, daily range): BP systolic 137–185; BP diastolic 60–92
[2018-10-31] MEDS: metroNIDAZOLE-Flagyl 500mg/NS 100ml IVPB IV SCH (00:31)
[2018-10-31] MEDS: clindamycin-Cleocin 900mg/D5W 50 ML IV SCH ×2 (00:31→08:39)
[2018-10-31] MEDS: morphine 4 MG/ML inj SYRINge IV PRN ×5 (01:20→22:19)
[2018-10-31 03:46] LABS: BASOPHILS % (AUTO) 0.4 % (0-1); EOSINOPHILS # (AUTO) 0.1 X10'3 (0-0.9); EOSINOPHILS % (AUTO) 0.6 % (0-6); HEMATOCRIT 32.8 % (42.0-52.0); HEMOGLOBIN 10.9 g/dl (14.0-17.9); LYMPHOCYTES # (AUTO) 1.4 X10'3 (1.1-4.8); LYMPHOCYTES % (AUTO) 13.1 % (21-51); MEAN CORPUSCULAR HEMOGLOBIN 29.6 PG (27.0-31.0); MEAN CORPUSCULAR HGB CONC 33.2 g/dL (33.0-36.5); MEAN CORPUSCULAR VOLUME 89.1 FL (78-98); MEAN PLATELET VOLUME 7.9 FL (7.4-10.4); MONOCYTES # (AUTO) 0.5 X10'3 (0-0.9); MONOCYTES % (AUTO) 5.2 % (2-12); NEUTROPHILS # (AUTO) 8.4 X10'3 (1.8-7.7); NEUTROPHILS % (AUTO) 80.7 % (42-75); PLATELET COUNT 246 X10'3 (140-440); RED BLOOD COUNT 3.68 X10'6 (4.70-6.10); RED CELL DISTRIBUTION WIDTH 13.6 % (11.5-14.5); WHITE BLOOD COUNT 10.4 X10'3 (4.5-11.0)
[2018-10-31 03:57] LABS: ALANINE AMINOTRANSFERASE 25 U/L (12-78); ALBUMIN 1.8 G/DL (3.4-5.0); ALBUMIN/GLOBULIN RATIO 0.5 (1.1-1.5); ALKALINE PHOSPHATASE 56 IU/L (46-116); ANION GAP 10 (8-16); ASPARTATE AMINO TRANSFERASE 20 U/L (10-37); BILIRUBIN,TOTAL 0.3 MG/DL (0.1-1.0); BLOOD UREA NITROGEN 20 MG/DL (7-18); BUN/CREATININE RATIO 16.8 (5.4-32.0); CALCIUM 7.9 MG/DL (8.5-10.1); CHLORIDE 109 MMOL/L (99-107); CREATININE 1.19 MG/DL (0.60-1.10); GLUCOSE 194 MG/DL (70-104); MAGNESIUM 1.3 MG/DL (1.5-2.4); PHOSPHORUS 3.1 MG/DL (2.3-4.5); POTASSIUM 3.3 MMOL/L (3.5-5.1); SODIUM 144 MMOL/L (135-145); TOTAL PROTEIN 5.3 G/DL (6.4-8.2); eGFR 63 ML/MIN
[2018-10-31] MEDS: normal saline 1000ml 1,000 ML IV SCH (05:30)
[2018-10-31] MEDS: potassium Cl 20mEq/100mL bag 100 ML IV PRN ×2 (05:55→09:22)
--- NOTE | 2018-10-31 06:35 | NUR ---
Problems reprioritized. Patient report given, questions answered & plan of care reviewed with SHARAN DALTON.
[2018-10-31] MEDS: lactobacillus rhamnosus 10,000 MMU CELLS/CAPSULE PO SCH ×2 (07:50→20:36)
[2018-10-31] MEDS: hydrocortisone sod succ/PF 100mg/2ml inj. IV SCH (07:50)
[2018-10-31] MEDS: multivitamin oral liquid (Certavite) 5ml cup PO SCH (07:50)
[2018-10-31] MEDS: ESOMEPRAZOLE 40 MG VIAL IV SCH (07:50)
[2018-10-31] MEDS: CefTRIAXone 2gm/D5W 50ml 50 ML IV SCH (07:57)
[2018-10-31] MEDS: K, MAG and/or Phos replacement - Verify level? MC SCH (08:00)
[2018-10-31] MEDS: insulin Lispro (HumaLOG) vial - multi-dose SQ SCH ×2 (09:00→13:00)
[2018-10-31] MEDS ORDERED: lisinopril 10 MG tablet PO SCH (09:10)
[2018-10-31] MEDS: HYDROcodone/acetaminophen 10/325mg tab PO PRN ×2 (10:24→15:47)
[2018-10-31] MEDS: metroNIDAZOLE 500mg tablet PO SCH ×2 (15:47→20:35)
[2018-10-31] MEDS: lisinopril 20mg tablet PO SCH (15:47)
[2018-10-31] MEDS: aspirin 81mg tab.chew PO SCH (15:47)
[2018-10-31] MEDS ORDERED: glucagon, human recombinant 1mg kit SUBCUT PRN (15:55)
[2018-10-31] MEDS ORDERED: dextrose 50%-water 50ml dispensing syringe IV PRN ×2 (15:55)
[2018-10-31] MEDS ORDERED: MESSAGE TO PHARMACY PO ONE (15:55)
[2018-10-31] MEDS ORDERED: dextrose ORAL solution 15 GM/59 ML bottle PO PRN ×2 (15:55)
--- NOTE | 2018-10-31 16:52 | NUR ---
Patient in room CICU 2013. I have received report from SHA Miller and had the opportunity to ask questions and assume patient care.
--- NOTE | 2018-10-31 18:27 | NUR ---
Problems reprioritized. Patient report given, questions answered & plan of care reviewed with SHA Cota.
--- NOTE | 2018-10-31 18:45 | NUR ---
Patient in room [facility] 347. I have received report from Harriet DALTON and had the opportunity to ask questions and assume patient care.
[2018-10-31] MEDS: amitryptiline 50mg tablet PO SCH (20:36)
[2018-10-31] MEDS: glipizide 5mg tablet PO SCH (20:36)
[2018-10-31] MEDS: citalopram 20mg tablet PO SCH (20:37)
[2018-10-31] MEDS: traMADol 50MG tablet PO SCH (20:43)
[2018-10-31] MEDS: insulin glargine (Lantus) pen - multi-dose SQ SCH (21:00)
[2018-11-01] VITALS: BP 150/89
[2018-11-01 05:30] LABS: BASOPHILS % (AUTO) 0.4 % (0-1); EOSINOPHILS # (AUTO) 0.3 X10'3 (0-0.9); EOSINOPHILS % (AUTO) 3.3 % (0-6); HEMOGLOBIN 11.6 g/dl (14.0-17.9); LYMPHOCYTES # (AUTO) 2.5 X10'3 (1.1-4.8); LYMPHOCYTES % (AUTO) 25.5 % (21-51); MEAN CORPUSCULAR HEMOGLOBIN 29.9 PG (27.0-31.0); MEAN CORPUSCULAR VOLUME 87.7 FL (78-98); MEAN PLATELET VOLUME 7.9 FL (7.4-10.4); MONOCYTES # (AUTO) 0.7 X10'3 (0-0.9); MONOCYTES % (AUTO) 6.8 % (2-12); NEUTROPHILS # (AUTO) 6.4 X10'3 (1.8-7.7); PLATELET COUNT 237 X10'3 (140-440); RED BLOOD COUNT 3.87 X10'6 (4.70-6.10); RED CELL DISTRIBUTION WIDTH 13.9 % (11.5-14.5)
[2018-11-01 05:32] LABS: ALANINE AMINOTRANSFERASE 16 U/L (12-78); ALBUMIN 1.9 G/DL (3.4-5.0); ALBUMIN/GLOBULIN RATIO 0.6 (1.1-1.5); ALKALINE PHOSPHATASE 51 IU/L (46-116); ANION GAP 5 (8-16); ASPARTATE AMINO TRANSFERASE 16 U/L (10-37); BILIRUBIN,TOTAL 0.2 MG/DL (0.1-1.0); BLOOD UREA NITROGEN 17 MG/DL (7-18); CALCIUM 7.9 MG/DL (8.5-10.1); CHLORIDE 109 MMOL/L (99-107); CREATININE 1.06 MG/DL (0.60-1.10); GLUCOSE 83 MG/DL (70-104); MAGNESIUM 1.4 MG/DL (1.5-2.4); PHOSPHORUS 2.6 MG/DL (2.3-4.5); SODIUM 141 MMOL/L (135-145); TOTAL CARBON DIOXIDE 26.6 MMOL/L (24-32); TOTAL PROTEIN 5.2 G/DL (6.4-8.2); eGFR 72 ML/MIN
[2018-11-01 05:48] LABS: POTASSIUM 2.9 MMOL/L (3.5-5.1)
--- NOTE | 2018-11-01 06:28 | NUR ---
Problems reprioritized. Patient report given, questions answered & plan of care reviewed with Harriet DALTON.
--- NOTE | 2018-11-01 06:32 | NUR ---
Patient in room [facility] 347. I have received report from SHA Cota and had the opportunity to ask questions and assume patient care.
[2018-11-01 07:00] VITALS: BP 159/80
[2018-11-01] MEDS: traMADol 50MG tablet PO SCH ×3 (07:15→20:32)
[2018-11-01] MEDS: citalopram 20mg tablet PO SCH ×2 (07:15→20:32)
[2018-11-01] MEDS: loratadine 10mg tablet PO SCH (07:16)
[2018-11-01] MEDS: aspirin 81mg tab.chew PO SCH (07:16)
[2018-11-01] MEDS: glipizide 5mg tablet PO SCH (07:16)
[2018-11-01] MEDS: multivitamin oral liquid (Certavite) 5ml cup PO SCH (07:16)
[2018-11-01] MEDS: potassium Cl 20 mEq SR tablet PO PRN ×3 (07:16→17:30)
[2018-11-01] MEDS: CefTRIAXone 2gm/D5W 50ml 50 ML IV SCH (07:16)
[2018-11-01] MEDS: lactobacillus rhamnosus 10,000 MMU CELLS/CAPSULE PO SCH ×2 (07:16→20:31)
[2018-11-01] MEDS: metroNIDAZOLE 500mg tablet PO SCH ×3 (07:16→20:31)
[2018-11-01] MEDS: lisinopril 20mg tablet PO SCH (07:20)
[2018-11-01] MEDS: ESOMEPRAZOLE 40 MG VIAL IV SCH (07:57)
[2018-11-01] MEDS: K, MAG and/or Phos replacement - Verify level? MC SCH (08:00)
[2018-11-01] MEDS ORDERED: magnesium 4gm in 100ml NS 100 ML IV PRN (09:55)
[2018-11-01 11:00] VITALS: BP 128/68
[2018-11-01] MEDS: morphine 4 MG/ML inj SYRINge IV PRN ×2 (11:13→23:12)
[2018-11-01] MEDS: enoxaparin 40mg/0.4ml syringe SUBCUT SCH (15:36)
[2018-11-01] MEDS: morphine 2 MG/ML inj. syringe IV PRN (16:52)
--- NOTE | 2018-11-01 16:57 | NUR ---
Reassessment: Pt s/p perineal debridement and has been transferred to the surgical floor. Diet has been advanced to CHO controlled with documented 75-100% PO intake. Pt seen at bedside provided with written and verbal protein and DM ed with referral to outpatient DM class and RD contact information. 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 RD encouraged pt to attend outpatient DM class and educated pt on foods that contain carbohydrate, reading the nutrition facts label, consistent CHO intake, and the importance of monitoring BG levels for wound healing. Pt presented with understanding however may benefit from further education. Pt provided with malnutrition education with recommendations for ONS following discharge as well as ONS coupons. RD highly encouraged ONS and/or double protein during hospital stay however pt declined at this time and is with no food preferences. Pt endorses a good appetite and denies any food allergies. Pt reports difficulty chewing d/t being edentulous however denies texture modification at this time. LBM 10/30, pt reports smears and no feeling of constipation. Will continue to follow. Recommendations: 1) continue CHO controlled diet 2) Encourage PO intake of protein; monitor acceptance to additional protein/ONS 3) MVI for wound healing 4) Monitor need for additional bowel care 5) Wt per rx Addendum: 11/01/18 at [address] Amended: Links added.
[2018-11-01] MEDS: magnesium Cl slow-release 64mg tablet PO PRN (17:30)
--- NOTE | 2018-11-01 18:23 | NUR ---
Patient in room [facility] 347. I have received report from Harriet DALTON and had the opportunity to ask questions and assume patient care.
[2018-11-01 19:00] VITALS: BP 115/50
[2018-11-01] MEDS: amitryptiline 50mg tablet PO SCH (20:31)
[2018-11-01] MEDS: insulin glargine (Lantus) pen - multi-dose SQ SCH (21:00)
[2018-11-02] VITALS: BP 120/94
[2018-11-02] MEDS: temazepam 15mg capsule PO PRN ×2 (00:30→22:51)
[2018-11-02] MEDS: morphine 4 MG/ML inj SYRINge IV PRN (03:34)
--- NOTE | 2018-11-02 06:05 | NUR ---
Patient in room [facility] 347. I have received report from SHA Cota and had the opportunity to ask questions and assume patient care.
[2018-11-02 06:30] VITALS: BP 127/58
--- NOTE | 2018-11-02 06:33 | NUR ---
Problems reprioritized. Patient report given, questions answered & plan of care reviewed with Saima RN.
[2018-11-02] MEDS: enoxaparin 40mg/0.4ml syringe SUBCUT SCH (07:44)
[2018-11-02] MEDS: loratadine 10mg tablet PO SCH (07:46)
[2018-11-02] MEDS: aspirin 81mg tab.chew PO SCH (07:46)
[2018-11-02] MEDS: pantoprazole 40mg Tablet.DR PO SCH (07:46)
[2018-11-02] MEDS: lisinopril 20mg tablet PO SCH (07:46)
[2018-11-02] MEDS: lactobacillus rhamnosus 10,000 MMU CELLS/CAPSULE PO SCH ×2 (07:46→20:53)
[2018-11-02] MEDS: traMADol 50MG tablet PO SCH ×3 (07:46→20:53)
[2018-11-02] MEDS: CefTRIAXone 2gm/D5W 50ml 50 ML IV SCH (07:47)
[2018-11-02] MEDS: metroNIDAZOLE 500mg tablet PO SCH ×3 (07:47→20:53)
[2018-11-02] MEDS: citalopram 20mg tablet PO SCH ×2 (07:47→20:53)
[2018-11-02] MEDS: multivitamin oral liquid (Certavite) 5ml cup PO SCH (07:56)
[2018-11-02 09:54] LABS: BASOPHILS # (AUTO) 0.1 X10'3 (0-0.2); BASOPHILS % (AUTO) 0.6 % (0-1); EOSINOPHILS # (AUTO) 0.3 X10'3 (0-0.9); EOSINOPHILS % (AUTO) 3.3 % (0-6); HEMATOCRIT 32.2 % (42.0-52.0); HEMOGLOBIN 10.9 g/dl (14.0-17.9); LYMPHOCYTES # (AUTO) 2.2 X10'3 (1.1-4.8); LYMPHOCYTES % (AUTO) 22.6 % (21-51); MEAN CORPUSCULAR VOLUME 88.2 FL (78-98); MEAN PLATELET VOLUME 8.1 FL (7.4-10.4); MONOCYTES # (AUTO) 0.5 X10'3 (0-0.9); MONOCYTES % (AUTO) 5.1 % (2-12); NEUTROPHILS # (AUTO) 6.6 X10'3 (1.8-7.7); NEUTROPHILS % (AUTO) 68.4 % (42-75); PLATELET COUNT 215 X10'3 (140-440); RED BLOOD COUNT 3.65 X10'6 (4.70-6.10); RED CELL DISTRIBUTION WIDTH 13.6 % (11.5-14.5); WHITE BLOOD COUNT 9.6 X10'3 (4.5-11.0)
[2018-11-02 10:10] LABS: ALANINE AMINOTRANSFERASE 15 U/L (12-78); ALBUMIN 1.8 G/DL (3.4-5.0); ALBUMIN/GLOBULIN RATIO 0.6 (1.1-1.5); ALKALINE PHOSPHATASE 49 IU/L (46-116); ANION GAP 7 (8-16); ASPARTATE AMINO TRANSFERASE 24 U/L (10-37); BILIRUBIN,TOTAL 0.1 MG/DL (0.1-1.0); BLOOD UREA NITROGEN 14 MG/DL (7-18); BUN/CREATININE RATIO 12.7 (5.4-32.0); CALCIUM 8.1 MG/DL (8.5-10.1); CHLORIDE 106 MMOL/L (99-107); GLUCOSE 213 MG/DL (70-104); MAGNESIUM 1.3 MG/DL (1.5-2.4); POTASSIUM 3.4 MMOL/L (3.5-5.1); SODIUM 138 MMOL/L (135-145); TOTAL CARBON DIOXIDE 25.4 MMOL/L (24-32); eGFR 69 ML/MIN
[2018-11-02] MEDS: HYDROcodone/acetaminophen 10/325mg tab PO PRN ×3 (10:36→22:10)
[2018-11-02] MEDS: K, MAG and/or Phos replacement - Verify level? MC SCH (10:53)
[2018-11-02 11:00] VITALS: BP 112/51
[2018-11-02] MEDS: magnesium Cl slow-release 64mg tablet PO PRN ×2 (11:03→19:23)
[2018-11-02] MEDS: potassium Cl 20 mEq SR tablet PO PRN ×3 (11:03→19:23)
--- NOTE | 2018-11-02 18:47 | NUR ---
Patient in room [facility] 347. I have received report from Saima DALTON and had the opportunity to ask questions and assume patient care.
[2018-11-02 19:00] VITALS: BP 123/57
[2018-11-02] MEDS: amitryptiline 50mg tablet PO SCH (20:53)
[2018-11-02] MEDS: insulin glargine (Lantus) pen - multi-dose SQ SCH (21:00)
[2018-11-03] VITALS: BP 123/56
[2018-11-03] MEDS: potassium Cl 20 mEq SR tablet PO PRN (02:05)
[2018-11-03] MEDS: HYDROcodone/acetaminophen 10/325mg tab PO PRN ×3 (03:03→22:24)
--- NOTE | 2018-11-03 06:05 | NUR ---
Patient in room [facility] 347. I have received report from SHA Cota and had the opportunity to ask questions and assume patient care.
[2018-11-03 06:30] VITALS: BP 117/84
--- NOTE | 2018-11-03 06:58 | NUR ---
Problems reprioritized. Patient report given, questions answered & plan of care reviewed with Saima RN.
[2018-11-03 07:44] LABS: BASOPHILS # (AUTO) 0.1 X10'3 (0-0.2); BASOPHILS % (AUTO) 0.7 % (0-1); EOSINOPHILS # (AUTO) 0.3 X10'3 (0-0.9); EOSINOPHILS % (AUTO) 2.9 % (0-6); HEMATOCRIT 37.1 % (42.0-52.0); HEMOGLOBIN 12.3 g/dl (14.0-17.9); LYMPHOCYTES # (AUTO) 2.2 X10'3 (1.1-4.8); LYMPHOCYTES % (AUTO) 23.4 % (21-51); MEAN CORPUSCULAR HEMOGLOBIN 29.8 PG (27.0-31.0); MEAN CORPUSCULAR HGB CONC 33.2 g/dL (33.0-36.5); MEAN PLATELET VOLUME 8.3 FL (7.4-10.4); MONOCYTES # (AUTO) 0.5 X10'3 (0-0.9); MONOCYTES % (AUTO) 5.5 % (2-12); NEUTROPHILS # (AUTO) 6.4 X10'3 (1.8-7.7); NEUTROPHILS % (AUTO) 67.5 % (42-75); PLATELET COUNT 252 X10'3 (140-440); RED BLOOD COUNT 4.12 X10'6 (4.70-6.10); RED CELL DISTRIBUTION WIDTH 13.5 % (11.5-14.5); WHITE BLOOD COUNT 9.5 X10'3 (4.5-11.0)
[2018-11-03 08:00] LABS: ALANINE AMINOTRANSFERASE 35 U/L (12-78); ALBUMIN 2.6 G/DL (3.4-5.0); ALBUMIN/GLOBULIN RATIO 0.6 (1.1-1.5); ALKALINE PHOSPHATASE 73 IU/L (46-116); ANION GAP 6 (8-16); ASPARTATE AMINO TRANSFERASE 37 U/L (10-37); BILIRUBIN,TOTAL 0.4 MG/DL (0.1-1.0); BLOOD UREA NITROGEN 10 MG/DL (7-18); BUN/CREATININE RATIO 9.3 (5.4-32.0); CALCIUM 8.8 MG/DL (8.5-10.1); CHLORIDE 105 MMOL/L (99-107); CREATININE 1.08 MG/DL (0.60-1.10); GLUCOSE 118 MG/DL (70-104); MAGNESIUM 1.7 MG/DL (1.5-2.4); SODIUM 137 MMOL/L (135-145); TOTAL PROTEIN 6.7 G/DL (6.4-8.2); eGFR 70 ML/MIN
[2018-11-03] MEDS: K, MAG and/or Phos replacement - Verify level? MC SCH (09:26)
[2018-11-03] MEDS: CefTRIAXone 2gm/D5W 50ml 50 ML IV SCH (09:27)
[2018-11-03] MEDS: metroNIDAZOLE 500mg tablet PO SCH ×3 (09:27→20:57)
[2018-11-03] MEDS: lisinopril 20mg tablet PO SCH (09:28)
[2018-11-03] MEDS: lactobacillus rhamnosus 10,000 MMU CELLS/CAPSULE PO SCH ×2 (09:28→20:57)
[2018-11-03] MEDS: aspirin 81mg tab.chew PO SCH (09:28)
[2018-11-03] MEDS: loratadine 10mg tablet PO SCH (09:28)
[2018-11-03] MEDS: citalopram 20mg tablet PO SCH ×2 (09:28→20:57)
[2018-11-03] MEDS: pantoprazole 40mg Tablet.DR PO SCH (09:28)
[2018-11-03] MEDS: enoxaparin 40mg/0.4ml syringe SUBCUT SCH (09:29)
[2018-11-03] MEDS: traMADol 50MG tablet PO SCH ×3 (09:29→20:58)
[2018-11-03] MEDS: multivitamins, therapeutics tablet PO SCH (09:30)
[2018-11-03 11:30] VITALS: BP 116/63
--- NOTE | 2018-11-03 19:00 | NUR ---
Patient in room [facility] 347. I have received report from HSA Landaverde and had the opportunity to ask questions and assume patient care.
--- NOTE | 2018-11-03 19:10 | NUR ---
Problems reprioritized. Patient report given, questions answered & plan of care reviewed with SHA Hawk.
[2018-11-03 20:00] VITALS: BP 121/76
[2018-11-03] MEDS: amitryptiline 50mg tablet PO SCH (20:57)
[2018-11-03] MEDS: insulin glargine (Lantus) pen - multi-dose SQ SCH (21:02)
[2018-11-03 23:00] VITALS: BP 126/66
[2018-11-04] MEDS: HYDROcodone/acetaminophen 10/325mg tab PO PRN ×3 (03:22→17:22)
[2018-11-04 05:16] LABS: BASOPHILS # (AUTO) 0.1 X10'3 (0-0.2); BASOPHILS % (AUTO) 0.7 % (0-1); EOSINOPHILS # (AUTO) 0.2 X10'3 (0-0.9); EOSINOPHILS % (AUTO) 3.2 % (0-6); HEMATOCRIT 31.4 % (42.0-52.0); HEMOGLOBIN 10.9 g/dl (14.0-17.9); LYMPHOCYTES # (AUTO) 1.9 X10'3 (1.1-4.8); MEAN CORPUSCULAR HGB CONC 34.9 g/dL (33.0-36.5); MEAN CORPUSCULAR VOLUME 88.8 FL (78-98); MEAN PLATELET VOLUME 8.4 FL (7.4-10.4); MONOCYTES # (AUTO) 0.7 X10'3 (0-0.9); MONOCYTES % (AUTO) 8.8 % (2-12); NEUTROPHILS # (AUTO) 4.6 X10'3 (1.8-7.7); NEUTROPHILS % (AUTO) 61.3 % (42-75); PLATELET COUNT 215 X10'3 (140-440); RED BLOOD COUNT 3.54 X10'6 (4.70-6.10); RED CELL DISTRIBUTION WIDTH 13.9 % (11.5-14.5); WHITE BLOOD COUNT 7.5 X10'3 (4.5-11.0)
[2018-11-04 05:24] LABS: ALANINE AMINOTRANSFERASE 22 U/L (12-78); ALBUMIN 2.1 G/DL (3.4-5.0); ALBUMIN/GLOBULIN RATIO 0.6 (1.1-1.5); ALKALINE PHOSPHATASE 52 IU/L (46-116); ANION GAP 4 (8-16); ASPARTATE AMINO TRANSFERASE 19 U/L (10-37); BILIRUBIN,TOTAL 0.2 MG/DL (0.1-1.0); BLOOD UREA NITROGEN 10 MG/DL (7-18); BUN/CREATININE RATIO 9.3 (5.4-32.0); CALCIUM 8.3 MG/DL (8.5-10.1); CHLORIDE 107 MMOL/L (99-107); CREATININE 1.07 MG/DL (0.60-1.10); GLUCOSE 166 MG/DL (70-104); MAGNESIUM 1.5 MG/DL (1.5-2.4); POTASSIUM 3.6 MMOL/L (3.5-5.1); SODIUM 139 MMOL/L (135-145); TOTAL CARBON DIOXIDE 27.9 MMOL/L (24-32); TOTAL PROTEIN 5.4 G/DL (6.4-8.2); eGFR 71 ML/MIN
--- NOTE | 2018-11-04 06:05 | NUR ---
Patient in room [facility] 347. I have received report from Rob RN & Carine RN and had the opportunity to ask questions and assume patient care.
[2018-11-04 06:30] VITALS: BP 133/59
--- NOTE | 2018-11-04 06:41 | NUR ---
Problems reprioritized. Patient report given, questions answered & plan of care reviewed with SHA Landaverde.
[2018-11-04] MEDS: K, MAG and/or Phos replacement - Verify level? MC SCH (07:19)
[2018-11-04] MEDS: metroNIDAZOLE 500mg tablet PO SCH ×2 (08:00→12:59)
[2018-11-04] MEDS: lactobacillus rhamnosus 10,000 MMU CELLS/CAPSULE PO SCH ×2 (08:00→19:17)
[2018-11-04] MEDS: loratadine 10mg tablet PO SCH (08:00)
[2018-11-04] MEDS: CefTRIAXone 2gm/D5W 50ml 50 ML IV SCH (08:00)
[2018-11-04] MEDS: lisinopril 20mg tablet PO SCH (08:01)
[2018-11-04] MEDS: citalopram 20mg tablet PO SCH ×2 (08:01→19:17)
[2018-11-04] MEDS: aspirin 81mg tab.chew PO SCH (08:01)
[2018-11-04] MEDS: pantoprazole 40mg Tablet.DR PO SCH (08:01)
[2018-11-04] MEDS: enoxaparin 40mg/0.4ml syringe SUBCUT SCH (08:02)
[2018-11-04] MEDS: traMADol 50MG tablet PO SCH ×2 (08:02→12:59)
[2018-11-04] MEDS: multivitamins, therapeutics tablet PO SCH (08:02)
[2018-11-04] MEDS: insulin Lispro (HumaLOG) vial - multi-dose SQ SCH ×3 (08:10→19:15)
[2018-11-04 11:00] VITALS: BP 120/66
--- NOTE | 2018-11-04 13:21 | NUR ---
Reassessment: Pt PO 100% meals meeting needs. LBM 11/03. No nutrition concerns at this time. Recommendations: 1) continue CHO controlled diet 2) MVI for wound healing 3) Monitor need for additional bowel care 4) Wt per rx Addendum: 11/04/18 at [address] Amended: Links added.
[2018-11-04] MEDS ORDERED: METR500T PO (14:08)
[2018-11-04] MEDS ORDERED: CEFT2VIA13 IV (14:08)
--- NOTE | 2018-11-04 18:20 | NUR ---
Problems reprioritized. Patient report given, questions answered & plan of care reviewed with SHA Herrera.
--- NOTE | 2018-11-04 18:30 | NUR ---
Patient in room [facility] 347. I have received report from Saima DALTON. and had the opportunity to ask questions and assume patient care. Addendum: 11/04/18 at 1930 by Sharon Ellis RN Informed that patient is packed up to go to [facility]. Patient is currently sitting up in chair having just finished his dinner. I will cover him with appropriate amount of insulin before leaving.
--- NOTE | 2018-11-04 19:39 | NUR ---
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 Patient had received his 8pm meds before leaving as well as his insulin. Patient left via gurney with all of his belongings.
== END 2018-11-04 19:36 | DRG 853 ==
LOC: ER 18:30 → CICU 2S 22:03 → SUR 3N 10-31 17:32
PROVIDERS: ADMIT Internal Medicine Critical Care Medicine; ATTEND Internal Medicine
PROC: 5A1955Z Respiratory Ventilation, Greater than 96 Consecutive Hours (ICD-10-PCS; 2018-10-24)
PROC: 0VB50ZZ Excision of Scrotum, Open Approach (ICD-10-PCS; 2018-10-24)
PROC: 0BH17EZ Insertion of Endotracheal Airway into Trachea, Via Natural or Artificial Opening (ICD-10-PCS; 2018-10-24)
PROC: 02HV33Z Insertion of Infusion Device into Superior Vena Cava, Percutaneous Approach (ICD-10-PCS; 2018-10-24)
PROC: 0KBM0ZZ Excision of Perineum Muscle, Open Approach (ICD-10-PCS; principal; 2018-10-24 20:56)
PROC: 0JBB0ZZ Excision of Perineum Subcutaneous Tissue and Fascia, Open Approach (ICD-10-PCS; 2018-10-27)
PROC: 0VB50ZZ Excision of Scrotum, Open Approach (ICD-10-PCS; 2018-10-27)
PROC: 0KBM0ZZ Excision of Perineum Muscle, Open Approach (ICD-10-PCS; 2018-10-29)
DX: A41.9 Sepsis, unspecified organism (principal); M72.6 Necrotizing fasciitis; R65.21 Severe sepsis with septic shock; N17.9 Acute kidney failure, unspecified; E11.65 Type 2 diabetes mellitus with hyperglycemia; N49.3 Fournier gangrene; Z88.0 Allergy status to penicillin; F12.90 Cannabis use, unspecified, uncomplicated; F15.90 Other stimulant use, unspecified, uncomplicated; E66.9 Obesity, unspecified; F32.9 Major depressive disorder, single episode, unspecified; F41.9 Anxiety disorder, unspecified; E78.5 Hyperlipidemia, unspecified; N49.2 Inflammatory disorders of scrotum; I10 Essential (primary) hypertension; I25.10 Atherosclerotic heart disease of native coronary artery without angina pectoris; F17.210 Nicotine dependence, cigarettes, uncomplicated; L08.9 Local infection of the skin and subcutaneous tissue, unspecified; B95.5 Unspecified streptococcus as the cause of diseases classified elsewhere; E87.6 Hypokalemia; E83.42 Hypomagnesemia; D64.9 Anemia, unspecified; Z68.36 Body mass index [BMI] 36.0-36.9, adult; Z71.51 Drug abuse counseling and surveillance of drug abuser
CPT/HCPCS: 36415; 36600; 71045; 76937; 80053; 80202; 82803; 82948; 83036; 83605; 83735; 84100; 84132; 85018; 85025; 85610; 86885; 86900; 86901; 86920; 87040; 87070; 87075; 87076; 87077; 87185; 87186; 88304; 88305; 93005; 94002; 94003; 94760; 96374; 97110; 97116; 97162; 97530; 99285; A6253; A6258; A6266; A6446; A6449; A7000; C1758; G0378; J0171; J0690; J0696; J1650; J1720; J1815; J1940; J1956; J2250; J2270; J2405; J2704; J3010; J3370; J3480; J3490; J7030; J7120